=== PATIENT | male | born 1985 | race Caucasian/White ===

== ENCOUNTER 2017-02-26 12:52 | Inpatient (IN) ==
[2017-02-26] MEDS ORDERED: ASPIRIN 325 MG TABLET PO STA (13:56)
--- NOTE | 2017-02-26 13:59 | EKG Report ---
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
[2017-02-26 14:04] LABS: Basophils % 0.4 % (0.0-0.8); Eosinophils % 0.5 % (0.00-10.9); Hematocrit 42.7 VOL% (42.0-52.0); Hemoglobin 14.4 GM/DL (14.0-18.0); Immature Granulocytes % 0.4 %; Immature Granulocytes Absolute 0.03 #; Lymphocytes # 1.6 10*3/uL (1.4-4.0); Lymphocytes % 20.6 % (21.2-54.2); Mean Corpuscular HGB Conc 33.7 GM/DL (32-36); Mean Corpuscular Hemoglobin 29 PG (27-34); Mean Corpuscular Volume 86.3 FL (87-102); Mean Platelet Volume 10.7 FL (9.6-12.0); Monocytes # 0.6 10*3/uL (0.11-0.8); Monocytes % 7.2 % (1.7-12.7); Neutrophils # 5.6 10*3/uL (1.4-7.4); Neutrophils % 70.9 % (38.7-73.9); Platelet Count 161 T/CUMM (130-400); Red Blood Count 4.95 MC/CUMM (3.8-5.5); Red Cell Distribution Width 12.4 % (9.3-17.3); White Blood Count 7.9 T/CUMM (4-12)
--- NOTE | 2017-02-26 14:29 | XRay Report ---
XR chest 2V Date: 02/26/2017 1:56 PM History: Chest pain Comparison: None Technique: PA and lateral chest Findings: The heart is minimally enlarged with prior median sternotomy and coronary valve replacement. Right subclavian atrioventricular pacemaker. Fragmented endocardial lead noted. Chronic scarring in the lungs with unremarkable mediastinum. Degenerative changes are noted. Impression: Status post median sternotomy and cardiac valve replacement with right subclavian atrioventricular pacemaker. Probable chronic scarring in the lungs with no definite acute cardiopulmonary pathology. PROCEDURE INTERPRETED AT [facility] DEPARTMENT OF RADIOLOGY Final Report Signed by: Dr. Danica Augustin
--- NOTE | 2017-02-26 15:17 | Emergency Department Note ---
Moses Garcia Manpreet, am scribing for, and in the presence of, Ortega Lopez MD 14:12. Jessica Garcia Phillip K, MD, personally performed the services described in this documentation, ascribed by Umesh Lopes in my presence, and it is both accurate and complete 517 . Arrival - Arrival ED Nursing Triage Note: CHEST PAIN, +SOB,+NAUSEA,-DIAPHORESIS, PAIN RADIATES DOWN L ARM Mode of Arrival: Ambulatory Source: Patient, Old Records Reviewed, RN Notes Reviewed - History of Present Illness Onset (ago): hour(s) Consistency: constant Severity: moderate Quality: other (Pressurized and tight) <Ortega Lopez - Last Filed: 02/26/17 15:38> <Padilla Dhaliwal - Last Filed: 02/26/17 16:06> - Arrival Chief Complaint: Chest Pain Stated Complaint: chest pain,has pacemaker Time Seen by Provider: 02/26/17 13:56 - History of Present Illness HPI Narrative: Pt is a 31 y/o Male with Hx of cardiac dysrhythmia, pacemaker,, and cardiovascular problems, who presents to the ED with CC of pressurized and tight CP or chest discomfort with SOB. The pain does not radiate but Pt states he felt numbness in his LUE. The Pt denies fever or cough, and takes 1 ASA qd. Patient apparently has had aortic valve replacement in the past. He had some type of septal defect as a child. No other complaints to the ED. (Umesh Lopes ) Pt is a 31 y/o Male with Hx of cardiac dysrhythmia, pacemaker,, and cardiovascular problems, who presents to the ED with CC of pressure and tight CP or chest discomfort with SOB. The pain does not radiate but Pt states he felt numbness in his LUE. The Pt denies fever or cough, and takes 1 ASA qd. Patient apparently has had aortic valve replacement in the past. He had some type of septal defect as a child. No other complaints to the ED. (Ortega Lopez) Allergies/Adverse Reactions: Allergies Allergy/AdvReac Type Severity Reaction Status Date / Time No Known Allergies Allergy Unverified 02/26/17 13:32 Home Medications: Home Medications Medication Instructions Recorded Confirmed Type Aspirin EC Tab 325 mg PO DAILY 02/26/17 02/26/17 History Review of System - Review of System 12 point system: reviewed and no additional remarkable complaints except as stated - Review of System Constitutional: Present: diaphoresis. Absent: fever Respiratory: Absent: cough Cardiovascular: Present: chest pain, dyspnea on exertion. Absent: edema Gastrointestinal: Present: nausea. Absent: abdominal pain, vomiting, diarrhea Musculoskeletal: Absent: arm pain, back pain, lower back pain, leg pain, neck pain Neurological: Present: numbness (Left arm numbness). Absent: headache <Ortega Lopez - Last Filed: 02/26/17 15:38> Medical,Surgical,& Family Hx - Medical History Cardio: History of: Aneurysm, Cardiac Dysrhythmia, Congenital Heart Disease, Pacemaker, Valvular Heart Disease, Cardiovascular Problems - Surgical History Cardiac Surgeries: Sugical HX of: Cardiac Surgery - Social History Smoking Status: Never smoker <Ortega Lopez - Last Filed: 02/26/17 15:38> Exam - Head Head exam: Present: atraumatic, normocephalic, normal inspection - Eye Eye exam: Present: normal appearance, PERRL, EOMI - ENT ENT exam: Present: normal exam, normal oropharynx, mucous membranes moist, TM's normal bilaterally - Neck Neck exam: Present: normal inspection, full ROM, trachea midline - Chest Chest inspection: Present: normal inspection, symmetric chest wall rise. 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 Absent: distention, tenderness - Extremities Exam Extremities exam: Present: normal inspection, full ROM. Absent: tenderness - Back Exam Back exam: Present: normal inspection, full ROM. Absent: tenderness - Neurological Exam Neurological exam: Present: alert, oriented X3, CN II-XII intact <Ortega Lopez - Last Filed: 02/26/17 15:38> Vital Signs: Vital Signs Temperature 98.3 F 02/26/17 13:55 Pulse Rate 55 L 02/26/17 13:55 Respiratory Rate 18 02/26/17 13:55 Blood Pressure 128/77 02/26/17 13:55 O2 Sat by Pulse Oximetry 100 02/26/17 13:27 Course <Ortega Lopez Last Filed: 02/26/17 15:38> - Consultations Time: 16:04 <Padilla Dhaliwal - Last Filed: 02/26/17 16:06> - Consultations Consultation #1: Dr. Woods will evaluate and admit the patient. (Padilla Dhaliwal) Results - Labs CBC & BMP: 02/26/17 13:49 Lab Results: I have reviewed the patients labs - EKG EKG results: interpreted by ERMD (atrial ventricular pacer rhythm.) - Diagnostic Findings Procedure: Chest x-ray: report reviewed by me (Status post median sternotomy and cardiac valve replacement with right subclavian atrioventricular pacemaker. Probable chronic scarring in the lungs with no definite acute cardiopulmonary pathology.) <Ortega Lopez - Last Filed: 02/26/17 15:38> - Labs CBC & BMP: 02/26/17 13:49 02/26/17 13:49 <Padilla Dhaliwal - Last Filed: 02/26/17 16:06> - Labs Labs: Laboratory Tests 02/26/17 02/26/17 13:49 13:49 WBC 7.9 RBC 4.95 Hgb 14.4 Hct 42.7 MCV 86.3 L Plt Count 161 Lymph % (Auto) 20.6 L Troponin I 0.867 H (Umesh Lopes) Laboratory Tests 02/26/17 02/26/17 13:49 13:49 WBC 7.9 RBC 4.95 Hgb 14.4 Hct 42.7 MCV 86.3 L Plt Count 161 Lymph % (Auto) 20.6 L Troponin I 0.867 H (Ortega Lopez) Disposition <Ortega Lopez - Last Filed: 02/26/17 15:38> Case discussed with: patient, patient's family Time of Disposition: 16:06 <Padilla Dhaliwal - Last Filed: 02/26/17 16:06> Clinical Impression: Chest pain Disposition: Still a Patient Condition: Stable
[2017-02-26 15:51] LABS: Potassium 4.2 MMOL/L (3.5-5.1)
[2017-02-26 15:53] LABS: Calcium 8.7 MG/DL (8.5-10.1)
[2017-02-26 15:54] LABS: Albumin 4.6 G/DL (3.4-5.0); Magnesium 2.3 MG/DL (1.8-2.4)
[2017-02-26 15:59] LABS: Bilirubin,Total 1.1 MG/DL (0.2-1.0); Total Protein 7.3 G/DL (6.4-8.3)
[2017-02-26] MEDS ORDERED: ZALEPLON 5 MG CAPSULE PO PRN (16:06)
[2017-02-26] MEDS ORDERED: POTASSIUM CHLORIDE 20 MEQ TABLET PO PRN (16:06)
[2017-02-26] MEDS ORDERED: MAGNESIUM SULF RIDER 4 GM in PREMIX 1 EACH IV PRN (16:06)
[2017-02-26] MEDS ORDERED: ONDANSETRON 4 MG/2 ML VIAL IV PRN (16:06)
[2017-02-26] MEDS ORDERED: DOCUSATE SODIUM 100 MG CAPSULE PO PRN (16:06)
[2017-02-26] MEDS ORDERED: diphenhydrAMINE CAP 25 MG CAPSULE PO PRN (16:06)
[2017-02-26] MEDS ORDERED: guaiFENesin/DM ER 600-30 MG TABLET PO PRN (16:06)
[2017-02-26] MEDS ORDERED: MAGNESIUM SULF RIDER 2 GM in PREMIX 1 EACH IV PRN (16:06)
--- NOTE | 2017-02-26 17:24 | Cardiology History & Physical ---
<Florinda Land E - Last Filed: 02/26/17 17:17> Assessment and Plan - Time spent with patient Time spent with patient: Greater than 30 minutes (Due to assessment, plan, and documentation.) (1) Chest pain Status: Acute Assessment and plan: Symptoms suspicious for angina. Will admit to telemetry floor for further monitoring. Continue to cycle cardiac biomarkers and EKGs. Has taken an aspirin today, will continue daily aspirin and full-strength Lovenox every 12 hours. Nitro paste to chest wall every 6 hours. We will try to obtain records from his services clerk at [facility] in [place]. Montgomery treadmill score in April 2015 was 7, low risk test. Dr. Woods to follow with further plan and addendum. Current Visit: Yes (2) Elevated troponin Status: Acute Assessment and plan: Troponin 0.867 with creatinine 0.7. Will continue to cycle cardiac biomarkers. Dr. Woods to follow with further plan and addendum. Current Visit: Yes (3) History of cardiac pacemaker Status: Chronic Assessment and plan: Dual chamber pacemaker at age 1. Current Visit: Yes (4) History of aortic valve replacement Status: Chronic Assessment and plan: Done in 2008. Has a Mitroflow tissue valve size 25. Current Visit: Yes (5) Family history of coronary artery disease Status: Chronic Assessment and plan: Mother with history of hypertension. Mother's brother of myocardial infarction at age 55. Maternal grandparents did not live past 60 years of age and he believes they both had myocardial infarctions at some point. Current Visit: Yes (6) VSD (ventricular septal defect) Status: Chronic Current Visit: Yes History of Present Illness Chief complaint: chest pain, left arm pain History of present illness: RN NICU: DR. TERENCE YANEZ at [facility] in [place], [place] Mr. Rai is a 31 year old male with a long cardiac history. His services clerk is Dr. Yanez at [facility] in [place]. Mr. 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 He was born with a VSD and has had a pacemaker since 1 year of age. He has a dual-chamber [employer] pacemaker. He has also had aortic valve replacement in 2008 with a Mitroflow tissue valve size 25. Risk factors are significant for: Family history of premature coronary artery disease, personal history. He tells me his mom is 60 and has hypertension but his maternal grandparents did not live past 60 years of age and he believes both of them had heart attacks. He reports his mother's brother from a heart attack at age 55. Patient tells me he woke up this morning with a discomfort in his chest. He reports he went about his day when he returned home he was doing yard work and had to stop after a few minutes due to chest heaviness, left arm pain, shortness of breath, and diaphoresis. He tells me he has always been easily winded and gets tachycardic whenever he exerts himself, but today he was not able to do nearly as much as he usually is. He tells me his left arm pain felt like a tightness and tingling sensation. He reports this has been improving over the last couple of hours. He reports prior to this morning he had been in his usual state of health. On arrival to our facility, he was noted to have a troponin of 0.867 with a creatinine of 0.7. Blood pressure is well controlled. EKG shows AV pacing with occasional PVCs and T-wave inversion in the inferior leads. Patient has an nicole on his phone which allowed me to do previous medical records. He underwent a stress test on April 25, 2015 which was low risk with a [place] treadmill score of 7. Echocardiogram was done April 27, 2015 and revealed ejection fraction 55-60% with mild tricuspid regurgitation. Dr. Woods to follow with further plan and addendum. Home Medications Medication Instructions Recorded Confirmed Type Aspirin EC Tab 325 mg PO DAILY 02/26/17 02/26/17 History Allergies Allergy/AdvReac Type Severity Reaction Status Date / Time No Known Allergies Allergy Unverified 02/26/17 13:32 Review of systems: - Constitutional: Present: As per HPI. Absent: anorexia, chills, daytime sleepiness, excessive sweating, fever(s), frequent falls, headache(s), increased appetite, lethargy, malaise, night sweats, stops breathing during sleep, weakness, weight gain, weight loss, fatigue. - EENT Eyes: Present: As per HPI. Absent: blurry vision, diplopia, loss of vision Ears: Present: As per HPI. Absent: decreased hearing, ear discharge, ear pain Nose, mouth and throat: Present: As per HPI. Absent: dysphagia, epistaxis, headache(s), hoarseness, lip swelling, nasal congestion, neck mass, neck pain, sinus pressure, sore throat, throat swelling, tongue swelling, vertigo - Cardiovascular: Present: chest pain at rest, chest pain with activity, dyspnea on exertion, palpitations, as per HPI. Absent: dyspnea, edema, claudication, diaphoresis, radiating jaw, neck or arm pain, lightheadedness, orthopnea, PND - Respiratory: Present: dyspnea on exertion, as per HPI. Absent: dyspnea, cough , hemoptysis, wheezing, snoring, pain on inspiration - Gastrointestinal: Present: As per HPI. Absent: abdominal pain, bloating, change in bowel habits, constipation, diarrhea, heartburn, hematemesis, hematochezia, loose stools, melena, nausea, vomiting - Genitourinary: Present: As per HPI. Absent: difficulty urinating, dysuria, flank pain, hematuria, nocturia, urinary frequency, urinary incontinence - Musculoskeletal: Present: Left arm pain, as per HPI. Absent: arthralgias, back pain, joint swelling, limited range of motion, muscle cramps, muscle weakness, myalgias - Neurological: Present: As per HPI. Absent: abnormal gait, abnormal speech, behavioral changes, confusion, convulsions, disequilibrium, dizziness, focal weakness, frequent falls, headache(s), memory loss, numbness, paresthesias, radicular pain, syncope, tremor(s) - Psychiatric: Present: As per HPI. Absent: anxiety, confusion, depression, panic attacks - Endocrine: Present: As per HPI. Absent: cold intolerance, fatigue, heat intolerance, polydipsia, polyphagia - Hematologic/Lymphatic: Present: As per HPI. Absent: easy bleeding, easy bruising, lymphadenopathy Medical,Surgical,& Family Hx - Medical History Cardio: History of: Aneurysm, Cardiac Dysrhythmia, Congenital Heart Disease (VSD ), Pacemaker (Dual-chamber initially placed at [age] year of age), Valvular Heart Disease (Aortic valve replacement 2008) No history of: Hypertension Endocrine: No history of: Diabetes Mellitus (IDDM), Diabetes Mellitus (NIDDM), Dyslipidemia - Surgical History Cardiac Surgeries: Sugical HX of: Cardiac Surgery (AVR in 2009 dual-chamber pacemaker at age 1.) - Family History Family History: Reports;: Family Cancer, Family Diabetes, Family Heart Disease, Family Hypertension - Social History Smoking Status: Never smoker Frequency of Alcohol Use: None Type of Drug Use: None Marital Status: Lives With:: Spouse Functional capacity: independent ambulation Cardiology Physical Exam - Constitutional Vitals: Vital Signs Temp Pulse Resp BP Pulse Ox 98.2 F 67 18 125/80 99 02/26/17 16:40 02/26/17 16:40 02/26/17 16:40 02/26/17 16:40 02/26/17 16:40 Intake and Output 02/26/17 02/26/17 02/26/17 06:59 14:59 22:59 Other: Weight 180 lb Patient Weight 02/27/17 06:59 Weight 180 lb Exam: General appearance: Pleasant and cooperative. Normal weight, no acute distress. - Head Head exam: Present: normal inspection, normocephalic, atraumatic. Absent: hematoma, laceration - Eye Eye exam: Present: EOMI. Absent: conjunctival injection, nystagmus, periorbital swelling, scleral icterus, laceration to eyelids Pupils: Present: PERRL. Absent: constricted, dilated, fixed, irregular, unequal - ENT ENT exam: Present: normal exam, normal external ear exam - Neck Neck exam: Present: normal inspection. Absent: lymphadenopathy, meningismus, tenderness, thyromegaly - Respiratory Respiratory exam: Present: clear to auscultation bilaterally. Absent: accessory muscle use, chest wall tenderness - Cardiovascular Cardiovascular exam: Present: regular rate and rhythm, systolic murmur best appreciated at apex with radiation to axilla, RUSB, and LUSB. Absent: gallop, JVD, rubs - GI/Abdominal GI/Abdominal exam: Present: normal bowel sounds, soft. Absent: distended, firm , guarding, hernia, mass, tenderness, rebound. - Extremities Exam Extremities exam: Present: normal inspection, normal capillary refill. Upper extremity pulses 2+. Lower extremity pulses 2+. Absent: calf tenderness, edema - Back Exam Back exam: Present: normal inspection. Absent: muscle spasm, vertebral tenderness - Neurological Exam Neurological exam: Present: alert, oriented X3, grossly intact without resting or essential tremor - Psychiatric Psychiatric exam: Present: normal affect, normal mood - Skin Skin exam: Present: normal color, warm, dry, intact. Pacemaker is apparent underneath skin of right upper chest wall. Absent: cyanosis, diaphoretic, rash , urticaria Result/EKG - Labs CBC & BMP: 02/26/17 13:49 02/26/17 13:49 Lab Results: I have reviewed the past 24 hour labs Labs: Laboratory Results - last 24 hr 02/26/17 02/26/17 02/26/17 13:49 13:49 13:49 WBC 7.9 RBC 4.95 Hgb 14.4 Hct 42.7 MCV 86.3 L MCH 29 MCHC 33.7 RDW 12.4 Plt Count 161 MPV 10.7 Neut % (Auto) 70.9 Lymph % (Auto) 20.6 L [place] % (Auto) 7.2 Eos % (Auto) 0.5 Baso % (Auto) 0.4 Neut # (Auto) 5.6 Lymph # (Auto) 1.6 [place] # (Auto) 0.6 Eos # (Auto) 0.0 Baso # (Auto) 0.0 Immature Gran % 0.4 Nucleated RBC % 0.0 Immature Gran # 0.03 Nucleated RBCs # 0.00 Sodium 143 Potassium 4.2 Chloride 109 H Carbon Dioxide 26 Anion Gap 12.2 BUN 14 Creatinine 0.70 GFR Calculation 147 BUN/Creatinine Ratio 20.00 Glucose 87 Calculated Osmolality 284.0 Calcium 8.7 Magnesium 2.3 Total Bilirubin 1.10 H AST 46 H ALT 51 Alkaline Phosphatase 53 Troponin I 0.867 H Total Protein 7.3 Albumin 4.6 Globulin 2.7 Albumin/Globulin Ratio 1.7 - EKG EKG results: interpreted by me (AV pacing with underlying sinus rhythm, occasional PVC, T-wave inversion in inferior leads.) <Von Woods - Last Filed: 02/26/17 18:35> History of Present Illness History of present illness: Patient personally interviewed and examined and chart reviewed. His is present. Agree with assessment and plan. In summation and addition Mr. Rai is a 31 year old male who is followed by Dr. Dill at [facility] in [place] for congenital heart disease having pacemaker implanted as well as cardiac surgeries for apparently septal defects and having had a tissue aortic valve. He had some chest pain in left arm pain. He is hasn't shortness of breath. No cyst today he was persistent. His troponin was increased at the time of this dictation is 2.8. This is significant and his ECG reveals AV sequential pacing. Certainly this patient needs further evaluation especially from coronary artery standpoint. We will try to obtain some records but he is probably the now have to have a cardiac catheterization. Cardiology Physical Exam - Constitutional Vitals: Vital Signs Temp Pulse Resp BP Pulse Ox 96.8 F L 59 L 18 141/77 99 02/26/17 17:53 02/26/17 17:53 02/26/17 17:53 02/26/17 17:53 02/26/17 17:53 Intake and Output 02/26/17 02/26/17 02/26/17 07:59 15:59 23:59 Other: Weight 74.956 kg Patient Weight 02/26/17 23:59 Weight 74.956 kg Exam: Patient has this systolic diastolic murmur heard over the entire precordium and loudest the lower chest. Slight thrill is noted with this. Systolic portion radiates to the base the neck. Result/EKG - Labs CBC & BMP: 02/26/17 13:49 02/26/17 13:49 Labs: Laboratory Results - last 24 hr 02/26/17 17:11 Total Creatine Kinase 227 CK-MB (CK-2) 20.4 H CK and CKMB Interp 9.0 Troponin I 2.800 H D
[2017-02-26 17:57] LABS: Troponin I Only 2.8 NG/ML (0.00-0.045)
[2017-02-26] MEDS: ENOXAPARIN 80 MG/0.8 ML SYRINGE SUBCUT SCH (18:29)
[2017-02-26] MEDS: NITROGLYCERIN 2% OINT 1 INCH/GM PACK TOP SCH (18:30)
[2017-02-26] MEDS: SODIUM CHLORIDE 0.9% 1,000 ML IV SCH (18:30)
--- NOTE | 2017-02-26 20:59 | EKG Report ---
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
[2017-02-27] MEDS: NITROGLYCERIN 2% OINT 1 INCH/GM PACK TOP SCH ×2 (00:09→05:56)
[2017-02-27 00:21] LABS: CKMB % 8.5 %
[2017-02-27 00:39] LABS: Troponin I Only 6.96 NG/ML (0.00-0.045)
[2017-02-27] MEDS: SODIUM CHLORIDE 0.9% 1,000 ML IV SCH ×2 (02:23→09:42)
[2017-02-27 05:10] LABS: Basophils % 0.2 % (0.0-0.8); Eosinophils # 0.1 10*3/uL (0.0-0.87); Eosinophils % 0.8 % (0.00-10.9); Hematocrit 40.1 VOL% (42.0-52.0); Hemoglobin 13.1 GM/DL (14.0-18.0); Immature Granulocytes % 0.4 %; Immature Granulocytes Absolute 0.03 #; Lymphocytes # 1.6 10*3/uL (1.4-4.0); Lymphocytes % 19.3 % (21.2-54.2); Mean Corpuscular HGB Conc 32.7 GM/DL (32-36); Mean Corpuscular Hemoglobin 29 PG (27-34); Mean Corpuscular Volume 87.4 FL (87-102); Mean Platelet Volume 10.9 FL (9.6-12.0); Monocytes # 0.6 10*3/uL (0.11-0.8); Monocytes % 6.9 % (1.7-12.7); Neutrophils # 6.1 10*3/uL (1.4-7.4); Neutrophils % 72.4 % (38.7-73.9); Platelet Count 145 T/CUMM (130-400); Red Blood Count 4.59 MC/CUMM (3.8-5.5); Red Cell Distribution Width 12.5 % (9.3-17.3); White Blood Count 8.4 T/CUMM (4-12)
[2017-02-27 05:55] LABS: Calcium 8.3 MG/DL (8.5-10.1); Magnesium 2.1 MG/DL (1.8-2.4); Osmolality,Calculated 277.4 MOS/KG (273-304); Potassium 4.2 MMOL/L (3.5-5.1); Thyroid Stimulating Hormone 1.4 uIU/ml (0.358-3.74)
[2017-02-27 05:59] LABS: CKMB % 8.4 %
[2017-02-27 06:01] LABS: Troponin I Only 9.72 NG/ML (0.00-0.045)
[2017-02-27] MEDS: ENOXAPARIN 80 MG/0.8 ML SYRINGE SUBCUT SCH ×2 (06:08→17:12)
--- NOTE | 2017-02-27 08:19 | Cardiology Progress Note ---
Assessment and Plan (1) Acute non-ST segment elevation myocardial infarction Status: Acute Assessment and plan: The patient's troponin is increased now we need to carry car catheterization which apparently Today. He is not having any chest pain since admission. He is generally stable. I discussed cart catheterization as I have already reviewed. Current Visit: Yes (2) Congenital heart disease in adult Status: Acute Assessment and plan: Patient apparently has had septal defects previously. The details which we do not know. Our focus of course today would be just his coronary anatomy. We are trying to get records from [facility]. Current Visit: Yes (3) VSD (ventricular septal defect) Status: Chronic Assessment and plan: He has is based on his history. Current Visit: Yes (4) History of cardiac pacemaker Status: Chronic Assessment and plan: Center pacemaker chronically since 1 years of age. Is functioning appropriately clinically. Current Visit: Yes (5) History of aortic valve replacement Status: Chronic Assessment and plan: This is a bioprosthetic valve is having for several years. Current Visit: Yes (6) Elevated troponin Status: Acute Assessment and plan: Troponin elevation secondary to non-ST segment elevation myocardial infarction. Current Visit: Yes (7) Family history of coronary artery disease Status: Chronic Assessment and plan: Family history of premature coronary disease. Current Visit: Yes Cardiology - PN: Subj Interval history: The patient since admission has had no further chest pain. He denies any shortness of breath palpitations. She's had no GI complaints other symptomatology. His ECG and telemetry strips reveals episodes of sinus rhythm AV conduction but other times atrial pacing with AV conduction and other 80 sequential pacing and other times sinus rhythm with electronic ventricular pacing tracking. The patient's CBC this morning is stable. His chemistries are unremarkable. His CPK is increased at 325 with a positive CPK MB fraction as well as a troponin now to 9.7. His lipids were total cholesterol 122 and LDL of 68 HDL 61 TSH 1.4. With this patient had elevated troponin and appropriate chest pain is chronic catheterization. I did an echocardiogram because of his murmur to reevaluate his prosthetic valve. He needs cardiac catheterization knowing that I discussed cardiac catheterization which he and his . Because of his history of surgery and congenital abnormalities by plans will be to approach and the right groin. I discussed in detail cart catheterization possible Percocet intervention with he and his has artery noted reviewing indication procedure have been carried out and the risk. I discussed cardiac catheterization and percutaneous coronary intervention with the patient and available family. I reviewed with them the indications for the procedure and the basis of how the procedure would be carried out. I also reviewed with them the risk of the procedure which include but not necessarily limited to access site bleeding, bruising, pain, swelling or vascular injury that may require emergency vascular surgery, blood transfusion, or thrombin injection. Also discussed the possibility of stroke, myocardial infarction, arrhythmia which may require electrocardioversion, and the possibility of dye reaction that would require medical therapy. Also discussed the possibility of coronary artery injury, ruptured, closure or perforation that may require emergency bypass surgery. We also discussed the possibility of from a major complication. They voice understanding and agree to proceed. We'll plan on carry out this morning after reviewing his echocardiogram. Exam (Progress Note) - Constitutional Vitals: Period Temp Pulse Resp BP Sys/Galvez Pulse Ox Last 24 Hr 96.8 F-98.9 F 54-67 16-18 100-141/58-80 97-99 Exam: General appearance: normal weight, no acute distress HEENT exam: normal inspection, atraumatic Neck exam: normal inspection no JVD. No carotid bruit. Trachea is in midline. He doesn't radiate murmur the base the neck. Respiratory/lungs exam: clear to auscultation bilaterally good air movement. Cardiovascular exam: regular rate and rhythm, with a to 3/6 systolic murmur heard over the entire precordium along with a decrescendo 2/6 diastolic murmur. Chest wall exam: nontender, he has old scar from prior thoracic surgery. Pacemaker right upper chest. GI/Abdominal exam: normal bowel sounds, soft, nontender, no abdominal bruits or pulsatile masses. Extremeties/musculoskeletal: normal inspection without edema or cyanosis. Neurological exam: alert, oriented X3, no focal deficits Psychiatric exam: normal affect, normal mood. Cognitive function is grossly normal. Skin exam: normal color, warm Result/EKG - Labs CBC & BMP: 02/27/17 04:47 02/27/17 04:47 Lab Results: I have reviewed the past 24 hour labs Labs: Laboratory Results - last 24 hr 02/26/17 02/26/17 02/27/17 17:11 23:43 04:47 WBC RBC Hgb Hct MCV MCH MCHC RDW Plt Count MPV Neut % (Auto) Lymph % (Auto) [place] % (Auto) Eos % (Auto) Baso % (Auto) Neut # (Auto) Lymph # (Auto) [place] # (Auto) Eos # (Auto) Baso # (Auto) Immature Gran % Nucleated RBC % Immature Gran # Nucleated RBCs # Sodium Potassium Chloride Carbon Dioxide Anion Gap BUN Creatinine GFR Calculation BUN/Creatinine Ratio Glucose Calculated Osmolality Calcium Magnesium Total Creatine Kinase 227 323 H D 325 H CK-MB (CK-2) 20.4 H 27.4 H D 27.3 H CK and CKMB Interp 9.0 8.5 8.4 Troponin I 2.800 H D 6.960 H D 9.720 H D Triglycerides Cholesterol LDL Cholesterol VLDL Cholesterol HDL Cholesterol Heart Disease Risk Ratio TSH 3rd Generation 02/27/17 02/27/17 04:47 04:47 WBC 8.4 RBC 4.59 Hgb 13.1 L Hct 40.1 L MCV 87.4 MCH 29 MCHC 32.7 RDW 12.5 Plt Count 145 MPV 10.9 Neut % (Auto) 72.4 Lymph % (Auto) 19.3 L [place] % (Auto) 6.9 Eos % (Auto) 0.8 Baso % (Auto) 0.2 Neut # (Auto) 6.1 Lymph # (Auto) 1.6 [place] # (Auto) 0.6 Eos # (Auto) 0.1 Baso # (Auto) 0.0 Immature Gran % 0.4 Nucleated RBC % 0.0 Immature Gran # 0.03 Nucleated RBCs # 0.00 Sodium 140 Potassium 4.2 Chloride 105 Carbon Dioxide 27 Anion Gap 12.2 BUN 13 Creatinine 0.70 GFR Calculation 143 BUN/Creatinine Ratio 18.00 Glucose 89 Calculated Osmolality 277.4 Calcium 8.3 L Magnesium 2.1 Total Creatine Kinase CK-MB (CK-2) CK and CKMB Interp Troponin I Triglycerides 55 Cholesterol 122 LDL Cholesterol 68.0 VLDL Cholesterol 11.0 HDL Cholesterol 61 H Heart Disease Risk Ratio 2.00 TSH 3rd Generation 1.400 - Impressions Impressions: ECG as already described. Episodes of sinus rhythm with A-V conduction intrinsic ventricular rhythm. At other times there is AV sequential pacing and then variations of atrial and ventricular pacing.
[2017-02-27] MEDS ORDERED: MAGNESIUM SULF RIDER 2 GM in PREMIX 1 EACH IV PRN (08:25)
[2017-02-27] MEDS ORDERED: POTASSIUM CHLORIDE RIDER 10 MEQ in PREMIX 1 EACH IV PRN (08:25)
[2017-02-27] MEDS ORDERED: diphenhydrAMINE CAP 25 MG CAPSULE PO ONE (08:25)
[2017-02-27] MEDS ORDERED: DIAZEPAM 5 MG TABLET PO ONE (08:25)
[2017-02-27] MEDS ORDERED: ASPIRIN 325 MG TABLET PO ONE (08:25)
--- NOTE | 2017-02-27 08:56 | ECHO Report ---
Irvin Rai Exam Date: 02/27/2017 08:09 Referring Physician: Technologist: Cheyanne Mackay RDCS Age: 31 Ht (in): 71 Wt (lb): 165 Gender: M Exam Location: [facility] Echo Indications: Chest pain, unspecified, Non-ST elevation (NSTEMI) myocardial infarction, Presence of cardiac pacemaker, Elevated troponin, Congenital heart disease with murmur, hx AVR BP: 100 / 58 HR: 59 Rhythm: Sinus Technical Quality: Good IMPRESSIONS 1. Left ventricle normal size with overall normal systolic function and ejection fraction of 60%. There is mild concentric left ventricular hypertrophy. 2. Left atrium is mildly to moderately dilated. 3. Right ventricle is normal size systolic function. 4. Right atrium is mildly increased in size. 5. Pacemaker leads are noted in the right atrium and right ventricle. 6. Mitral valve is overall unremarkable without significant regurgitation noted. 7. Bioprosthetic aortic valve that is sclerotic with at least moderate if not severe stenosis with some probably mild insufficiency. 8. Mild tricuspid regurgitation. 9. Mildly elevated right-sided pressures. MEASUREMENTS (Male / Female) Normal Values 2D ECHO LV Diastolic Diameter PLAX 5.5 cm 4.2 - 5.9 / 3.9 - 5.3 cm LV Systolic Diameter PLAX 3.8 cm LV Fractional Shortening PLAX 31.7 % IVS Diastolic Thickness 1.2 cm 0.6 - 1.0 / 0.6 - 0.9 cm LVPW Diastolic Thickness 1.2 cm 0.6 - 1.0 / 0.6 - 0.9 cm RV Internal Dim ED PLAX 3.4 cm Aortic Root Diameter 3.7 cm LA Systolic Diameter LX 5.0 cm 3.0 - 4.0 / 2.7 - 3.8 cm DOPPLER TR Peak Velocity 294.0 cm/s TR Peak Gradient 34.6 mmHg FINDINGS Left Ventricle Normal left ventricular cavity size. Mild left ventricular hypertrophy. Left ventricular ejection fraction is estimated at 60 %. Right Ventricle Normal right ventricular size. Catheter/pacemaker wire visualized in the right ventricle. Right Atrium Mildly increased right atrial size. Catheter/pacemaker wire in the right atrial cavity. Left Atrium Moderately increased left atrial size. Mitral Valve Morphologically normal mitral valve without significant stenosis or prolapse. There is no mitral regurgitation. Aortic Valve Bioprosthetic aortic valve. Mean gradient 24 mmHg, JOHN 0.86 cm. Mild periprosthetic regurgitation. Tricuspid Valve Morphologically normal tricuspid valve. Mild tricuspid valve regurgitation. Tricuspid regurgitation velocities suggest a PAP of 45 mmHg. Pulmonic Valve Morphologically normal pulmonic valve. Trace pulmonary valve regurgitation. Pericardium Normal pericardium without effusion. Aorta Normal ascending aorta dimension. Von Woods MD (Electronically Signed) Final Date: 27 February 2017 08:54
[2017-02-27] MEDS: PANTOPRAZOLE 40 MG TABLET PO SCH (09:38)
[2017-02-27] MEDS: ASPIRIN EC 325 MG TABLET PO SCH (09:38)
[2017-02-27] MEDS ORDERED: LIDOCAINE 1% 20 ML VIAL ONE (09:38)
[2017-02-27] MEDS ORDERED: HYDROmorphone 2 MG/1 ML VIAL ONE (10:02)
[2017-02-27] MEDS ORDERED: MIDAZOLAM 2 MG/2 ML VIAL ONE (10:03)
--- NOTE | 2017-02-27 10:03 | History and Physical Update ---
Sedation H&P Update - History and Physical H&P was reviewed, the patient examined and there: are no changes in the patients condition since last H&P was completed. - Dictation Physical: refer to H&P completed by admitting physician - Physical Exam Mental Status: alert and oriented Heart: regular rate and rhythm Lung: clear to auscultation Abdomen: within normal limits Vitals: within normal limits History and Physical Changes: None - Sedation Plan for Sedation: moderate ASA Class: III Airway Assessment: Class II: Soft palate, uvula, fauces visible
[2017-02-27] MEDS ORDERED: fentaNYL 100 MCG/2 ML VIAL ONE (10:20)
--- NOTE | 2017-02-27 11:07 | Operative Note ---
Date of procedure: 02/27/17 Procedure Preformed: Right and left coronary artery angiography without LV gram. Surgeon / Physician: Von Woods Post-op diagnosis: same Findings: Right coronary artery is widely patent. Specimens: none sent Estimated blood loss: minimal Condition: stable Anesthesia: local, conscious sedation Disposition: floor
[2017-02-27] MEDS ORDERED: CLOPIDOGREL 300 MG TABLET PO ONE (11:08)
[2017-02-27] MEDS ORDERED: NITROGLYCERIN SL 0.4 MG TABLET SL PRN (11:08)
[2017-02-27] MEDS ORDERED: CLOPIDOGREL 300 MG TABLET ONE (11:10)
--- NOTE | 2017-02-27 11:28 | Cardiac Catheterization ---
Date of Procedure:: 02/27/17 Pre-op Diagnosis: Non-ST segment elevation myocardial infarction. Post-op diagnosis: same Procedure: LEFT HEART CATHERIZATION History: 31-year-old man with congenital heart disease who is had corrective surgery previously. The patient presented to the emergency room having chest pain rated his left arm with shortness of breath. His ECG has some nonspecific abnormalities some of which room probably chronic. His troponin no increased to 9.7. His CPK increased over 300. His effort cart catheterization to evaluate coronary artery anatomy. Pre-Op diagnosis: Non-ST segment elevation myocardial infarction. Postoperative diagnosis: Same but normal coronary arteries. Procedures: 1. Selective left and right coronary angiograms. 2. Right common femoral artery angiogram with Angio-Seal hemostasis. Equipment: 6 Argentine arterial sheath, 6 Argentine diagnostic JL4, JR4 and AR Mod diagnostic catheters. A 6 Argentine Angio-Seal hemostatic device. Medications: Preoperative Benadryl and Valium given by mouth. Lidocaine 1% local anesthesia 137 mls administered by myself. Intraprocedure patient received Versed 2 mgs IVP, fentanyl 100 mcg IVP. Complications: None immediate. Contrast: Omnipaque 137 milliliters. Description of procedure: After informed consent the patient was given preoperative medications and brought to the catheterization laboratory where their right groin was prepped and draped in usual fashion. IV sedation was then obtained after which local anesthesia was administered at the right groin over the right common femoral artery. Using modified Seldinger technique the right common femoral artery was cannulated with 6 Argentine arterial sheath placed. The pigtail catheter was then advanced through the sheath in a retrograde approach through the aorta to the aortic valve. The catheter was advanced through the aortic valve where left ventricular pressures were measured. The catheter was then pulled back into the aortic root and pressures measured. The catheter was then advanced across the aortic valve into the left ventricle where left ventricular angiogram was obtained in the right anterior oblique view. The pigtail catheter was then removed. The JL4 diagnostic coronary catheter was then advanced through the sheath in a retrograde approach and used to cannulate the left coronary artery of which angiograms were obtained in multiple projections. This catheter was then removed. The JR 4 diagnostic coronary catheter was then advanced retrograde through the aorta and used to cannulate the right coronary artery of which angiograms were obtained in multiple projections. This right coronary catheter was used to obtain selective left internal mammary artery angiogram. Angiograms were then reviewed. The right coronary catheter was pulled back into the sheath where a right common femoral artery angiogram was obtained with Angio-Seal hemostasis then obtained of this vessel. There were no immediate complications. Hemodynamic data: LV not done; AO root 81/41 , mean 57 . Left ventricular angiogram: Not done. Left main coronary artery angiogram: Left main coronary is short and widely patent. Bifurcates LAD and circumflex arteries. Left anterior descending artery angiogram: LAD is a medium caliber vessel that extends to the anterior apex. The first and second diagonal branches are medium caliber vessels. The second diagonal branch has some myocardial bridging in mid vessel. Circumflex artery angiogram: Circumflex artery is medium large size vessel is codominant with the right coronary. Proximal he gives rise to a medium First obtuse marginal branch is small obtuse marginal in the mid vessel. Distally there are 2 medium to large size posterior ventricular branches. Circumflex artery is widely patent without stenosis or disease or other abnormalities noted. Right coronary artery angiogram: Right coronary is a somewhat small medium caliber vessel that is codominant with the circumflex artery. He gives rise to a small PDA distally. The vessel is widely patent without stenosis or other disease noted. Right common femoral artery angiogram: Right common femoral artery is widely patent bifurcating into the superficial femoral artery and profundus branch and are both patent. The sheath is inserted in the common femoral artery. Impression: 1. Aortic valve which is a known bioprosthetic device was not crossed. 2. Right coronary artery is small to medium size and codominant. It is widely patent. 3. Left main coronary is short but patent. 4. Circumflex artery is codominant and is without stenosis or the disease. 5. LAD is patent without stenosis or disease. Second diagonal does have some myocardial bridging. 6. Right common femoral artery is widely patent with successful Angio- Seal hemostasis. Discussion: The patient does not have obstructive coronary artery disease to account for his non-ST segment elevation myocardial infarction. I do not think the myocardial bridging in the second diagonal is the culprit. We did not see any residual thrombus in the coronary arteries. Certainly the patient may have had transient thrombus or coronary spasm. Present plan will be to cover him with aspirin and Plavix as well and has calcium channel surya and when necessary nitrates. I think his plans will be to follow what with Marisol Dill. Implants: None Anesthesia: local, moderate conscious sedation Surgeon / Physician: Von Woods Unix Manager: other (Nick Aviles RT) Estimated blood loss: minimal Specimens: none sent Condition: stable Disposition: floor - Medications / Follow-up
--- NOTE | 2017-02-27 13:14 | Event Note ---
Patient doing well post cardiac catheterization. Discussed findings with he and his reviewed our plans.
[2017-02-28 04:45] LABS: Basophils % 0.4 % (0.0-0.8); Eosinophils # 0.1 10*3/uL (0.0-0.87); Hematocrit 40.8 VOL% (42.0-52.0); Hemoglobin 13.5 GM/DL (14.0-18.0); Immature Granulocytes % 0.3 %; Immature Granulocytes Absolute 0.03 #; Lymphocytes # 1.6 10*3/uL (1.4-4.0); Lymphocytes % 16.1 % (21.2-54.2); Mean Corpuscular HGB Conc 33.1 GM/DL (32-36); Mean Corpuscular Hemoglobin 29 PG (27-34); Mean Corpuscular Volume 86.1 FL (87-102); Mean Platelet Volume 11.3 FL (9.6-12.0); Monocytes # 0.9 10*3/uL (0.11-0.8); Monocytes % 9.1 % (1.7-12.7); Neutrophils # 7.1 10*3/uL (1.4-7.4); Neutrophils % 73.1 % (38.7-73.9); Platelet Count 157 T/CUMM (130-400); Red Blood Count 4.74 MC/CUMM (3.8-5.5); Red Cell Distribution Width 12.4 % (9.3-17.3); White Blood Count 9.7 T/CUMM (4-12)
[2017-02-28 05:29] LABS: Calcium 8.5 MG/DL (8.5-10.1); Magnesium 2.2 MG/DL (1.8-2.4); Osmolality,Calculated 278.3 MOS/KG (273-304); Potassium 4.2 MMOL/L (3.5-5.1)
[2017-02-28] MEDS: ENOXAPARIN 80 MG/0.8 ML SYRINGE SUBCUT SCH (06:39)
[2017-02-28] MEDS ORDERED: CLOPIDOGREL 75 MG TABLET PO SCH (09:00)
[2017-02-28] MEDS: PANTOPRAZOLE 40 MG TABLET PO SCH (09:10)
[2017-02-28] MEDS: ASPIRIN EC 325 MG TABLET PO SCH (09:10)
[2017-02-28 09:15] VITALS: BP 110/64
--- NOTE | 2017-02-28 11:07 | Discharge Summary ---
Hospital Course - Hospital Course Hospital Course: Patient admitted with angina pectoris tightened symptomatology and being unstable. His evaluation revealed elevation of his troponins and CPK. His CPK did not go very high in the aortic is troponin. His ECG is periodically paced and baseline abnormal. The patient's had congenital heart disease and multiple surgeries before as well as a chronic dual-chamber pacemaker. He is followed at [facility] by Dr. Dill. After his initial pain the patient had no further chest discomfort. Echocardiogram revealed normal left ventricular function and ejection fraction and wall was a bioprosthetic aortic valve with moderate to severe stenosis. The patient though is been asymptomatic in this regard. Certainly one could argue that if he has significant aortic stenosis if this could've led to ischemia. Cardiac catheterization revealed his coronary arteries to be widely patent with myocardial bridging of the second diagonal branch. There is no gross source for non-ST segment elevation myocardial infarction. His blood pressures of been stable since being in the hospital is not had a prior problem hypertension. If this time we will discharge the patient on medication to cover him for acute coronary thrombus or platelet thrombus formation as well as coronary spasm. We will follow with him in one week. His physician Dr. Odom in your legs may want to see him before then. 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 It should be noted that we attempt to get records from [facility] in order to have some data on special prior cardiac catheterizations and echocardiogram to compare to. - Time spent with patient Time with patient DS: Greater than 30 minutes Diagnosis - Discharge Diagnosis (1) Acute non-ST segment elevation myocardial infarction Status: Acute (2) Congenital heart disease in adult Status: Chronic (3) VSD (ventricular septal defect) Status: Chronic (4) History of cardiac pacemaker Status: Chronic (5) History of aortic valve replacement Status: Chronic (6) Elevated troponin Status: Acute (7) Family history of coronary artery disease Status: Chronic (8) Aortic valve stenosis Status: Acute Discharge Plan - Discharge Data Disposition: Disch To Home/Self Care Condition at Discharge: Stable Discharge Diet: advance to your usual diet 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 - Discharge Medications New Clopidogrel [Plavix] 75 mg PO DAILY #30 tablet Nitroglycerin Sl Tab [Nitrostat] 0.4 mg SL Q5M PRN #30 tablet PRN Reason: Chest Pain NIFEdipine XL TAB [Procardia Xl] 30 mg PO DAILY #30 tablet Continue Aspirin EC Tab 325 mg PO DAILY - Follow Up or Referral Follow Up: Von Woods MD [Physician] - 1 Week (Follow-up appointment with me in one week with ECG) - Forms/Instructions Exam - Constitutional Vitals: Period Temp Pulse Resp BP Sys/Galvez Pulse Ox Last 24 Hr 95.9 F-98.6 F 53-70 16-20 92-120/55-73 93-98 Exam: General appearance: normal weight, no acute distress HEENT exam: normal inspection, atraumatic Neck exam: normal inspection no JVD. No carotid bruit. Trachea is in midline. Cardiac murmur radiates to the base the neck. Respiratory/lungs exam: clear to auscultation bilaterally good air movement. Cardiovascular exam: regular rate and rhythm, with a to 3/6 systolic murmur heard over the entire precordium along with a decrescendo 2/6 diastolic murmur. Chest wall exam: nontender, he has old scar from prior thoracic surgery. Pacemaker right upper chest. GI/Abdominal exam: normal bowel sounds, soft, nontender, no abdominal bruits or pulsatile masses. Extremeties/musculoskeletal: normal inspection without edema or cyanosis. Patient's right groin catheterization site is stable with just slight tenderness. No ecchymosis. Neurological exam: alert, oriented X3, no focal deficits Psychiatric exam: normal affect, normal mood. Cognitive function is grossly normal. Skin exam: normal color, warm Discharge Results Procedures and tests throughout hospitalization: Pending Orders 02/27/17 09:38 CL heart Stat 03/01/17 04:00 Basic Metabolic Panel IN AM Comp Blood Count Auto Diff IN AM Magnesium IN AM Echocardiogram with normal left ventricular function and moderate to severe prosthetic aortic valve stenosis. This is a tissue valve. Pacemaker lesion on the right sided chambers. The patient's other cardiac valves appeared be stable. Cardiac catheterization that revealed coronary disease and we just some myocardial bridging in the second diagonal branch. LV gram was not done. We did not cross the prosthetic aortic valve. Labs on day of discharge: Labs from last 24 hours 02/28/17 02/28/17 04:03 04:03 WBC 9.7 RBC 4.74 Hgb 13.5 L Hct 40.8 L MCV 86.1 L MCH 29 MCHC 33.1 RDW 12.4 Plt Count 157 MPV 11.3 Neut % (Auto) 73.1 Lymph % (Auto) 16.1 L [place] % (Auto) 9.1 Eos % (Auto) 1.0 Baso % (Auto) 0.4 Neut # (Auto) 7.1 Lymph # (Auto) 1.6 [place] # (Auto) 0.9 H Eos # (Auto) 0.1 Baso # (Auto) 0.0 Immature Gran % 0.3 Nucleated RBC % 0.0 Immature Gran # 0.03 Nucleated RBCs # 0.00 Sodium 141 Potassium 4.2 Chloride 106 Carbon Dioxide 27 Anion Gap 12.2 BUN 11 Creatinine 0.70 GFR Calculation 143 BUN/Creatinine Ratio 15.00 Glucose 86 Calculated Osmolality 278.3 Calcium 8.5 Magnesium 2.2 DS: Provider Date of admission: 02/26/17 16:06 Primary care physician: . No PCP Attending physician on admission: Mimi Alvarado Consults: 02/27/17 11:08 Consult to Cardiac Rehabilitation [CONS] Routine Reason for Cardiac Rehabilitation: Risk Factor Modification Discharging clinician: Mimi Alvarado Expected date of discharge: 02/28/17
== END 2017-02-28 12:15 | disposition home or self-care (01) | DRG 281 ==
LOC: N.ED 12:52 → N.EDINP 16:06 → N.TELES 16:27
PROVIDERS: ADMIT Internal Medicine Cardiovascular Disease; ATTEND Internal Medicine Cardiovascular Disease